=== PATIENT | male | born 1965 | race Caucasian/White ===

== ENCOUNTER 2024-02-19 21:19 | Emergency (ER) | payer OTHER, SELFPAY ==
[2024-02-19 21:22] VITALS: BP 163/103
--- NOTE | 2024-02-19 22:05 | ED.GENMED ---
History of Present Illness
General
Chief Complaint: Musculo-Skeletal Complaint
Source: patient and family
Time Seen by Provider: 02/19/24 21:40
History of Present Illness
History of Present Illness:
58-year-old male who presents with left arm and shoulder injury. Patient states he was at home he tripped and fell over his dog. States he injured his left shoulder. There is deformity. He denies head or neck pain. No other injuries.
Phy Exam
Physical Exam
Physical Exam:
CONSTITUTIONAL Vital signs reviewed, Patient alert and oriented to person, place and time. Well-appearing
HEAD atraumatic, normocephalic.
EYES eyelids normal to inspection, Extraocular muscles intact, Conjunctiva normal, Sclera normal.
NECK normal range of motion, Trachea midline, no jugular venous distention.
RESP no respiratory distress
BACK No obvious deformities
UPPER EXTREMITY unable to range left shoulder due to pain. Empty glenoid deformity noted. Normal distal perfusion
LOWER EXTREMITY Gross range of motion normal, Gross motor strength normal
NEURO Speech normal, No focal motor deficits include, Roberto coma scale 15, Memory normal, Cranial Nerves intact to screening exam.
SKIN Skin warm, dry, and normal in color.
PSYCHIATRIC Patient oriented to person place and time, Normal affect.
Course
Orders/Labs/Results
Orders:
Orders
02/19/24 21:26
Shoulder, Left, Trauma CR [CR Shoulder, Trauma - Left] Urgent
Comment:
Reason For Exam: left shoulder injury from fall.
02/19/24 21:46
CR Shoulder, Trauma - Left Urgent
Reason For Exam: post reduction
Vital Signs
Initial and Last Documented VS:
Initial Vital Signs
Temp Pulse Resp BP Pulse Ox
97.7 F 86 18 163/103 94
02/19/24 21:22 02/19/24 21:22 02/19/24 21:22 02/19/24 21:22 02/19/24 21:22
Last Documented Vital Signs
Temp Pulse Resp BP Pulse Ox
97.7 F 86 18 163/103 94
02/19/24 21:22 02/19/24 21:22 02/19/24 21:22 02/19/24 21:22 02/19/24 21:22
Procedures
Splint Check
Splint checked by provider?: Yes
Circulation/Movement/Sensation post splint application: brisk cap refill and full sensation
Joint/Fracture Reduction
Left Shoulder:
Indication for procedure:: Shoulder dislocation
Procedure completed by: Dr. Mobley
Consent form signed: No
If no, reason: Emergency procedure
Joint reduced: without anesthesia
Injury was: closed
Further treatement: needs re-check only
Post reduction exam: stable
Capillary Refill: normal
Normal distal neurovascular exam?: Yes
MDM/Problems Addressed
MDM/Problems Addressed:
Anterior shoulder dislocation, uncontrolled hypertension
*Radiology
Radiology exam reviewed: preliminary read by ED provider (Successfully reduced, no fracture)
*Pulse Oximetry
Patient hypoxic: no
*Critical Care Note
Total Time (30-74mins, 75-104mins- exclusive of procedures): Not Applicable
Data Reviewed
Source: patient
Prescriptions/Medications Considered But Not Given:
Consider sedation with patient tolerated reduction well
Patient Management
Escalation/DeEscalation of care consider admission/obs:
Shoulder reduced. Sling applied. Outpatient orthopedic follow-up recommended
ED Attending Note
-
Portions of this chart may have been created with voice recognition software.� Occasional wrong word or��sound alike� substitutions may have occurred due to the inherent limitations of voice recognition software.
Discharge Plan
Departure
Patient Disposition: Home (Routine Discharge)
Date of Disposition: 02/19/24
Time of Disposition: 22:08
Patient with high blood pressure during this ER visit?: Yes
Discharge Problem:
Anterior shoulder dislocation
Instructions: Shoulder Dislocation (DC), BLOOD PRESSURE
Referrals:
Luis Alberto Hamm MD [Active] -
Activity Restrictions/Additional Instructions:
Please see orthopedics in follow-up in the next 2 to 3 days for follow-up and reevaluation. Return immediately for numbness, tingling, worsening pain or any other concerns. Please limit any overhead arm movement.
Interventions
Interventions:
*Risk Screen - Suicide Last Done: 02/19/24 21:22
*General Assessment Last Done: 02/19/24 21:22
*Neglect/Abuse Screening Last Done: 02/19/24 21:22
Discharge Date and Time
Print Language: WOLOF
[2024-02-19 22:24] VITALS: BP 158/80
== END 2024-02-19 22:30 | disposition home or self-care (01) ==
LOC: EMR 21:19
PROVIDERS: EMERGENCY PHYSICIAN Emergency Medicine; FAMILY PHYSICIAN Family Medicine
DX: S43.085A Other dislocation of left shoulder joint, initial encounter (principal); W01.0XXA Fall on same level from slipping, tripping and stumbling without subsequent striking against object, initial encounter; I10 Essential (primary) hypertension
CPT/HCPCS: 99283; 23650; 73030